=== PATIENT | male | born 1935 | race Caucasian/White ===

== ENCOUNTER 2023-01-25 20:37 | Inpatient (IN) | payer OTHER ==
[2023-01-25] MEDS ORDERED: FUROSEMIDE 40 MG/4 ML INJECTABLE VIAL IVPUSH ONE (20:55)
[2023-01-25] MEDS ORDERED: FUROSEMIDE 40 MG/4 ML INJECTABLE VIAL ONE (21:16)
[2023-01-25 21:28] LABS: BASO % 0.7 % (0-2.0); EOS % 5.3 % (0-4.5); HEMATOCRIT 42.7 % (35.4-49); HEMOGLOBIN 14.3 GM/dL (11.7-16.9); LYMPH % 16.1 % (8-40); MCHC 33.4 g/dl (32.0-35.9); MEAN CELL VOLUME 92.6 fl (80-96); MEAN PLT VOLUME 7.4 fl (7.5-11.1); MONO % 13.3 % (3.8-10.2); NEUT % 64.6 % (42.8-82.8); PLATELET COUNT 250 10^3/uL (134-434); RBC 4.61 M/mm3 (4.00-5.60); RDW 15.8 % (11.9-15.9); WHITE BLOOD COUNT 5.4 K/mm3 (4.0-10.0)
[2023-01-25 21:31] LABS: VENOUS BASE EXCESS -2.7 mmol/L (-2-2); VENOUS O2 SATURATION 62.7 % (70-80); VENOUS PCO2 46.2 mmHg (38-52); VENOUS PH 7.326 (7.310-7.410)
[2023-01-25 21:37] LABS: INR 1.3 (0.83-1.09)
[2023-01-25 21:39] LABS: ACTIVATED PTT 32.4 SECONDS (25.2-36.5)
[2023-01-25 21:45] LABS: POTASSIUM 4.6 mmol/L (3.5-5.1)
[2023-01-25 21:48] LABS: ALBUMIN 2.8 g/dl (3.4-5.0); BLOOD UREA NITROGEN 24.6 mg/dL (7-18); CALCIUM 8.4 mg/dL (8.5-10.1)
[2023-01-25 21:51] LABS: CREATININE 2.2 mg/dL (0.55-1.3)
[2023-01-25 21:52] LABS: BILIRUBIN,TOTAL 1.1 mg/dL (0.2-1)
[2023-01-25 21:55] LABS: TOT PROT 6.6 g/dl (6.4-8.2)
[2023-01-25] MEDS ORDERED: ATORVASTATIN CA 20 MG TABLET (FP) ONE (22:32)
[2023-01-25] MEDS ORDERED: LISINOPRIL 10 MG TABLET ONE (22:33)
[2023-01-25] MEDS ORDERED: PANTOPRAZOLE 40 MG TABLET PO ONE (22:33)
[2023-01-25] MEDS: ATORVASTATIN CA 20 MG TABLET (FP) PO SCH (22:42)
[2023-01-25] MEDS: PANTOPRAZOLE 40 MG TABLET PO SCH (22:42)
[2023-01-25] MEDS: APIXABAN 2.5 MG TABLET PO SCH (22:42)
[2023-01-25] MEDS: LISINOPRIL 10 MG TABLET PO SCH (22:42)
[2023-01-25 23:03] LABS: EPI CELLS 2 /uL (0-25.1); HYALINE CASTS 0 /uL (0-3.1); PH,URINE 6.5 (5.0-8.0); URINE APPEARANCE CLEAR; URINE BACTERIA 6 /uL (0-1359); URINE BILIRUBIN NEGATIVE (NEGATIVE); URINE COLOR YELLOW; URINE GLUCOSE (UA) NEGATIVE (NEGATIVE); URINE KETONE NEGATIVE (NEGATIVE); URINE LEUK ESTERASE NEGATIVE (NEGATIVE); URINE NITRITE NEGATIVE (NEGATIVE); URINE PROTEIN 3+ (NEGATIVE); URINE RBC 28 /uL (0-23.9); URINE UROBILINOGEN 0.2 mg/dL (0.2-1.0); URINE WBC 3 /uL (0-25.8)
[2023-01-26] MEDS ORDERED: amLODIPine BESYLATE 5 MG TABLET (FP) PO ONE (01:16)
[2023-01-26] MEDS ORDERED: ALBUTEROL SO4 2.5/IPRATROPIUM 0.5 INH SOL 3 ML VIAL.NEB. NEB PRN ×2 (05:04→05:06)
[2023-01-26] MEDS ORDERED: hydrALAZINE HCL 20 MG/ML VIAL IVPUSH ONE (06:30)
[2023-01-26 07:51] LABS: POTASSIUM 3.8 mmol/L (3.5-5.1)
[2023-01-26 07:57] LABS: ALBUMIN 2.7 g/dl (3.4-5.0); CALCIUM 8.5 mg/dL (8.5-10.1)
[2023-01-26 07:58] LABS: BLOOD UREA NITROGEN 24.3 mg/dL (7-18)
[2023-01-26 07:59] LABS: BASO % 0.9 % (0-2.0); EOS % 5.7 % (0-4.5); HEMOGLOBIN 13.4 GM/dL (11.7-16.9); LYMPH % 16.3 % (8-40); MCH 31.7 pg (25.7-33.7); MCHC 34.4 g/dl (32.0-35.9); MEAN CELL VOLUME 92.3 fl (80-96); MEAN PLT VOLUME 7.3 fl (7.5-11.1); MONO % 15.3 % (3.8-10.2); NEUT % 61.8 % (42.8-82.8); PLATELET COUNT 218 10^3/uL (134-434); RBC 4.23 M/mm3 (4.00-5.60); RDW 15.7 % (11.9-15.9); WHITE BLOOD COUNT 4.7 K/mm3 (4.0-10.0)
[2023-01-26 08:00] LABS: CREATININE 2.2 mg/dL (0.55-1.3)
[2023-01-26 08:01] LABS: BILIRUBIN,TOTAL 1.2 mg/dL (0.2-1)
[2023-01-26 09:33] LABS: ERYTHROCYTE SEDIMENTATION RATE 39 mm/hr (0-20)
[2023-01-26] MEDS: FUROSEMIDE 40 MG/4 ML INJECTABLE VIAL IVPUSH SCH (10:45)
[2023-01-26] MEDS: APIXABAN 2.5 MG TABLET PO SCH ×2 (10:45→22:10)
[2023-01-26] MEDS: LISINOPRIL 10 MG TABLET PO SCH ×2 (10:45→22:10)
[2023-01-26] MEDS: PANTOPRAZOLE 40 MG TABLET PO SCH (10:45)
[2023-01-26] MEDS: ATORVASTATIN CA 20 MG TABLET (FP) PO SCH (22:10)
[2023-01-27] MEDS: amLODIPine BESYLATE 10 MG TABLET (FP) PO SCH ×2 (02:52→14:44)
[2023-01-27] MEDS ORDERED: hydrALAZINE HCL 20 MG/ML VIAL IVPUSH ONE (06:30)
[2023-01-27 07:49] LABS: BASO % 0.7 % (0-2.0); HEMATOCRIT 38.4 % (35.4-49); HEMOGLOBIN 12.8 GM/dL (11.7-16.9); LYMPH % 12.8 % (8-40); MCH 31.4 pg (25.7-33.7); MCHC 33.3 g/dl (32.0-35.9); MEAN CELL VOLUME 94.3 fl (80-96); MEAN PLT VOLUME 7.6 fl (7.5-11.1); MONO % 15.1 % (3.8-10.2); NEUT % 67.4 % (42.8-82.8); PLATELET COUNT 217 10^3/uL (134-434); RBC 4.07 M/mm3 (4.00-5.60); RDW 15.5 % (11.9-15.9); WHITE BLOOD COUNT 5.2 K/mm3 (4.0-10.0)
[2023-01-27 08:11] LABS: CHLORIDE 100 mmol/L (98-107); POTASSIUM 3.3 mmol/L (3.5-5.1); SODIUM 138 mmol/L (136-145)
[2023-01-27 08:16] LABS: ALBUMIN 2.4 g/dl (3.4-5.0); ANION GAP 10 MMOL/L (8-16); CALCIUM 8.2 mg/dL (8.5-10.1); CO2 28 mmol/L (21-32); GLUCOSE,RANDOM 92 mg/dL (74-106)
[2023-01-27 08:17] LABS: BLOOD UREA NITROGEN 24.5 mg/dL (7-18)
[2023-01-27 08:19] LABS: CREATININE 2.1 mg/dL (0.55-1.3); SGOT/AST 12 U/L (15-37)
[2023-01-27 08:21] LABS: BILIRUBIN,TOTAL 1.1 mg/dL (0.2-1); TOT PROT 5.6 g/dl (6.4-8.2)
[2023-01-27 08:22] LABS: ALK PHOS 143 U/L (45-117)
[2023-01-27 08:37] LABS: SGPT/ALT < 6 U/L (13-61)
[2023-01-27] MEDS: PANTOPRAZOLE 40 MG TABLET PO SCH (09:34)
[2023-01-27] MEDS: APIXABAN 2.5 MG TABLET PO SCH ×2 (09:34→22:21)
[2023-01-27] MEDS: FUROSEMIDE 40 MG/4 ML INJECTABLE VIAL IVPUSH SCH (09:34)
[2023-01-27] MEDS: LISINOPRIL 10 MG TABLET PO SCH ×2 (09:34→22:21)
[2023-01-27] MEDS: DONEPEZIL HCL 5 MG TABLET (FP) PO SCH (09:34)
[2023-01-27] MEDS ORDERED: POTASSIUM CHLORIDE TABS 20 MEQ TABLET.ER (FP) PO ONE (10:15)
[2023-01-27] MEDS: CYANOCOBALAMIN (VITAMIN B-12) 100 MCG TABLET PO SCH (14:44)
[2023-01-27] MEDS ORDERED: hydrALAZINE HCL 25 MG TABLET (FP) PO SCH (22:00)
[2023-01-27] MEDS ORDERED: hydrALAZINE HCL 10 MG TABLET PO SCH (22:00)
[2023-01-27] MEDS: ATORVASTATIN CA 20 MG TABLET (FP) PO SCH (22:21)
[2023-01-28] MEDS ORDERED: hydrALAZINE HCL 10 MG TABLET PO SCH (04:55)
[2023-01-28 06:43] LABS: BASO % 0.7 % (0-2.0); EOS % 3.9 % (0-4.5); HEMATOCRIT 38.6 % (35.4-49); LYMPH % 16.1 % (8-40); MCH 31.5 pg (25.7-33.7); MCHC 33.5 g/dl (32.0-35.9); MEAN CELL VOLUME 93.8 fl (80-96); MEAN PLT VOLUME 7.4 fl (7.5-11.1); MONO % 14.2 % (3.8-10.2); NEUT % 65.1 % (42.8-82.8); PLATELET COUNT 220 10^3/uL (134-434); RBC 4.12 M/mm3 (4.00-5.60); RDW 15.7 % (11.9-15.9); WHITE BLOOD COUNT 4.6 K/mm3 (4.0-10.0)
[2023-01-28 06:58] LABS: POTASSIUM 3.4 mmol/L (3.5-5.1)
[2023-01-28 07:00] LABS: BLOOD UREA NITROGEN 26.8 mg/dL (7-18); CALCIUM 8.4 mg/dL (8.5-10.1)
[2023-01-28 07:04] LABS: CREATININE 2.2 mg/dL (0.55-1.3)
[2023-01-28] MEDS: APIXABAN 2.5 MG TABLET PO SCH ×2 (09:18→21:18)
[2023-01-28] MEDS: LISINOPRIL 10 MG TABLET PO SCH ×2 (09:18→21:18)
[2023-01-28] MEDS: PANTOPRAZOLE 40 MG TABLET PO SCH (09:18)
[2023-01-28] MEDS: amLODIPine BESYLATE 10 MG TABLET (FP) PO SCH (09:18)
[2023-01-28] MEDS: FUROSEMIDE 40 MG/4 ML INJECTABLE VIAL IVPUSH SCH (09:18)
[2023-01-28] MEDS: KCL 10 MEQ IVPB 10 MEQ/100 ML INFUS.BAG IVPB SCH ×3 (09:18→12:15)
[2023-01-28] MEDS: DONEPEZIL HCL 5 MG TABLET (FP) PO SCH (09:18)
[2023-01-28] MEDS: CYANOCOBALAMIN (VITAMIN B-12) 100 MCG TABLET PO SCH (09:20)
[2023-01-28 09:27] LABS: ERYTHROCYTE SEDIMENTATION RATE 30 mm/hr (0-20)
[2023-01-28] MEDS ORDERED: POTASSIUM CHLORIDE TABS 20 MEQ TABLET.ER (FP) PO ONE (10:00)
[2023-01-28] MEDS ORDERED: hydrALAZINE HCL 25 MG TABLET (FP) PO ONE (16:56)
[2023-01-28] MEDS: hydrALAZINE HCL 50 MG TABLET (FP) PO SCH (21:18)
[2023-01-28] MEDS: ATORVASTATIN CA 20 MG TABLET (FP) PO SCH (21:18)
[2023-01-28] MEDS ORDERED: hydrALAZINE HCL 25 MG TABLET (FP) PO SCH (22:00)
[2023-01-29] MEDS: hydrALAZINE HCL 50 MG TABLET (FP) PO SCH ×3 (05:44→21:20)
[2023-01-29 08:13] LABS: BASO % 0.6 % (0-2.0); EOS % 4.3 % (0-4.5); HEMATOCRIT 41.7 % (35.4-49); HEMOGLOBIN 14.1 GM/dL (11.7-16.9); LYMPH % 15.8 % (8-40); MCH 31.7 pg (25.7-33.7); MCHC 33.9 g/dl (32.0-35.9); MEAN CELL VOLUME 93.4 fl (80-96); MEAN PLT VOLUME 7.6 fl (7.5-11.1); MONO % 14.6 % (3.8-10.2); NEUT % 64.7 % (42.8-82.8); PLATELET COUNT 255 10^3/uL (134-434); RBC 4.46 M/mm3 (4.00-5.60); RDW 15.6 % (11.9-15.9); WHITE BLOOD COUNT 4.9 K/mm3 (4.0-10.0)
[2023-01-29 08:29] LABS: POTASSIUM 3.8 mmol/L (3.5-5.1)
[2023-01-29 08:37] LABS: BLOOD UREA NITROGEN 27.4 mg/dL (7-18); CALCIUM 8.8 mg/dL (8.5-10.1)
[2023-01-29 08:40] LABS: CREATININE 2.2 mg/dL (0.55-1.3)
[2023-01-29] MEDS: FUROSEMIDE 40 MG/4 ML INJECTABLE VIAL IVPUSH SCH (09:28)
[2023-01-29] MEDS: LISINOPRIL 10 MG TABLET PO SCH ×2 (09:32→21:20)
[2023-01-29] MEDS: DONEPEZIL HCL 5 MG TABLET (FP) PO SCH (09:32)
[2023-01-29] MEDS: PANTOPRAZOLE 40 MG TABLET PO SCH (09:32)
[2023-01-29] MEDS: CYANOCOBALAMIN (VITAMIN B-12) 100 MCG TABLET PO SCH (09:32)
[2023-01-29] MEDS: amLODIPine BESYLATE 10 MG TABLET (FP) PO SCH (09:32)
[2023-01-29] MEDS: APIXABAN 2.5 MG TABLET PO SCH ×2 (09:32→21:20)
[2023-01-29] MEDS: NYSTATIN POWDER 100,000 UNITS/GM - 15 GM TOPICAL POWDER TP SCH ×2 (12:36→21:18)
[2023-01-29] MEDS: ATORVASTATIN CA 20 MG TABLET (FP) PO SCH (21:20)
[2023-01-30] MEDS: hydrALAZINE HCL 50 MG TABLET (FP) PO SCH ×3 (06:33→21:15)
[2023-01-30 07:22] LABS: BASO % 0.6 % (0-2.0); EOS % 4.8 % (0-4.5); HEMATOCRIT 39.9 % (35.4-49); HEMOGLOBIN 13.5 GM/dL (11.7-16.9); LYMPH % 14.6 % (8-40); MCH 31.8 pg (25.7-33.7); MCHC 33.8 g/dl (32.0-35.9); MEAN CELL VOLUME 94.2 fl (80-96); MEAN PLT VOLUME 7.4 fl (7.5-11.1); PLATELET COUNT 236 10^3/uL (134-434); RBC 4.23 M/mm3 (4.00-5.60); RDW 15.5 % (11.9-15.9); WHITE BLOOD COUNT 5.2 K/mm3 (4.0-10.0)
[2023-01-30 07:36] LABS: POTASSIUM 3.6 mmol/L (3.5-5.1)
[2023-01-30 07:39] LABS: CALCIUM 8.7 mg/dL (8.5-10.1)
[2023-01-30 07:40] LABS: BLOOD UREA NITROGEN 27.7 mg/dL (7-18); MAGNESIUM 1.8 mg/dL (1.8-2.4)
[2023-01-30 07:43] LABS: CREATININE 2.2 mg/dL (0.55-1.3)
[2023-01-30] MEDS ORDERED: MAGNESIUM 1GM/D5W 100ML - 100 ML IVPB IVPB ONE (08:00)
[2023-01-30] MEDS: APIXABAN 2.5 MG TABLET PO SCH ×2 (09:24→21:15)
[2023-01-30] MEDS: LISINOPRIL 10 MG TABLET PO SCH ×2 (09:24→21:15)
[2023-01-30] MEDS: PANTOPRAZOLE 40 MG TABLET PO SCH (09:24)
[2023-01-30] MEDS: amLODIPine BESYLATE 10 MG TABLET (FP) PO SCH (09:24)
[2023-01-30] MEDS: FUROSEMIDE 40 MG/4 ML INJECTABLE VIAL IVPUSH SCH (09:24)
[2023-01-30] MEDS: DONEPEZIL HCL 5 MG TABLET (FP) PO SCH (09:24)
[2023-01-30] MEDS: CYANOCOBALAMIN (VITAMIN B-12) 100 MCG TABLET PO SCH (09:24)
[2023-01-30] MEDS: NYSTATIN POWDER 100,000 UNITS/GM - 15 GM TOPICAL POWDER TP SCH ×2 (09:25→21:16)
[2023-01-30] MEDS: ATORVASTATIN CA 20 MG TABLET (FP) PO SCH (21:15)
[2023-01-31] MEDS: hydrALAZINE HCL 50 MG TABLET (FP) PO SCH (06:32)
[2023-01-31 07:28] LABS: BASO % 0.8 % (0-2.0); EOS % 5.9 % (0-4.5); HEMATOCRIT 41.3 % (35.4-49); HEMOGLOBIN 13.9 GM/dL (11.7-16.9); LYMPH % 14.9 % (8-40); MCH 31.8 pg (25.7-33.7); MCHC 33.6 g/dl (32.0-35.9); MEAN CELL VOLUME 94.7 fl (80-96); MEAN PLT VOLUME 7.3 fl (7.5-11.1); MONO % 13.1 % (3.8-10.2); NEUT % 65.3 % (42.8-82.8); PLATELET COUNT 242 10^3/uL (134-434); RBC 4.36 M/mm3 (4.00-5.60); RDW 15.6 % (11.9-15.9); WHITE BLOOD COUNT 5.3 K/mm3 (4.0-10.0)
[2023-01-31 07:47] LABS: POTASSIUM 3.6 mmol/L (3.5-5.1)
[2023-01-31 07:49] LABS: CALCIUM 8.6 mg/dL (8.5-10.1)
[2023-01-31 07:50] LABS: BLOOD UREA NITROGEN 31.2 mg/dL (7-18)
[2023-01-31 07:53] LABS: CREATININE 2.2 mg/dL (0.55-1.3)
[2023-01-31] MEDS: LISINOPRIL 10 MG TABLET PO SCH (09:26)
[2023-01-31] MEDS: FUROSEMIDE 40 MG/4 ML INJECTABLE VIAL IVPUSH SCH (09:26)
[2023-01-31] MEDS: DONEPEZIL HCL 5 MG TABLET (FP) PO SCH (09:26)
[2023-01-31] MEDS: APIXABAN 2.5 MG TABLET PO SCH (09:26)
[2023-01-31] MEDS: PANTOPRAZOLE 40 MG TABLET PO SCH (09:26)
[2023-01-31] MEDS: amLODIPine BESYLATE 10 MG TABLET (FP) PO SCH (09:26)
[2023-01-31] MEDS: CYANOCOBALAMIN (VITAMIN B-12) 100 MCG TABLET PO SCH (09:27)
[2023-01-31] MEDS: NYSTATIN POWDER 100,000 UNITS/GM - 15 GM TOPICAL POWDER TP SCH (09:27)
[2023-01-31] MEDS ORDERED: SPIRONOLACTONE 25 MG TABLET PO SCH (10:45)
[2023-01-31 16:05] VITALS: RESP 20
[2023-01-31 18:55] VITALS: BP 152/77; PULSE 84; TEMP 97.4
[2023-02-01] MEDS ORDERED: FUROSEMIDE 40 MG TABLET (FP) PO SCH (10:00)
[2023-02-01 21:59] VITALS: BMI 31.0
== END 2023-01-31 19:44 | DRG 291 ==
LOC: JER 20:37 → JERBED 20:55 → J4W 01-26 01:01
PROVIDERS: ADMIT Internal Medicine; ATTEND Internal Medicine
DX: I13.0 Hypertensive heart and chronic kidney disease with heart failure and stage 1 through stage 4 chronic kidney disease, or unspecified chronic kidney disease (principal); I50.33 Acute on chronic diastolic (congestive) heart failure; I87.2 Venous insufficiency (chronic) (peripheral); E78.5 Hyperlipidemia, unspecified; K21.9 Gastro-esophageal reflux disease without esophagitis; K22.70 Barrett's esophagus without dysplasia; N40.0 Benign prostatic hyperplasia without lower urinary tract symptoms; I25.10 Atherosclerotic heart disease of native coronary artery without angina pectoris; I48.91 Unspecified atrial fibrillation; E87.6 Hypokalemia
CPT/HCPCS: 0241U-QW; 36415; 71045-TC-FY; 76775-TC; 80048; 80053; 80061; 81003; 82607; 82803; 83036; 83735; 83880; 84443; 84484; 85025; 85610; 85651; 85730; 86140; 86780; 93005; 93010; 93306-TC; 97116-GP; 97162-GP; 99285-25

== ENCOUNTER 2023-08-30 14:50 | Inpatient (IN) | payer OTHER ==
[2023-08-30] MEDS ORDERED: methylPREDNISolone NA SUCC 125 MG/2 ML VIAL IVPB ONE (16:18)
[2023-08-30] MEDS ORDERED: ALBUTEROL SO4 2.5/IPRATROPIUM 0.5 INH SOL 3 ML VIAL.NEB. NEB ONE ×4 (16:19→20:20)
[2023-08-30] MEDS ORDERED: predniSONE 20 MG TABLET (UD) PO ONE (17:40)
[2023-08-30] MEDS ORDERED: predniSONE 20 MG TABLET (UD) ONE (17:58)
[2023-08-30 18:04] LABS: ALBUMIN 3.4 g/dl (3.4-5.0); CALCIUM 8.8 mg/dL (8.5-10.1); MAGNESIUM 1.7 mg/dL (1.8-2.4)
[2023-08-30 18:05] LABS: BLOOD UREA NITROGEN 37.3 mg/dL (7-18)
[2023-08-30 18:07] LABS: PHOSPHOROUS 2.9 mg/dL (2.5-4.9)
[2023-08-30 18:08] LABS: CREATININE 3.4 mg/dL (0.55-1.3)
[2023-08-30 18:09] LABS: BILIRUBIN,TOTAL 1.2 mg/dL (0.2-1); TOT PROT 7.8 g/dl (6.4-8.2)
[2023-08-30 18:13] LABS: N-TERMINAL BNP 14915.6 pg/ml (5-450)
[2023-08-30] MEDS ORDERED: SODIUM ZIRCONIUM CYCLOSILICATE (LOKELMA) 5 GM PACKET PO ONE (18:13)
[2023-08-30 19:21] LABS: BASO % 0.5 % (0-2.0); EOS % 0.3 % (0-4.5); HEMATOCRIT 38.1 % (35.4-49); HEMOGLOBIN 12.4 GM/dL (11.7-16.9); MCH 31.3 pg (25.7-33.7); MCHC 32.4 g/dl (32.0-35.9); MEAN CELL VOLUME 96.4 fl (80-96); MEAN PLT VOLUME 7.2 fl (7.5-11.1); MONO % 9.1 % (3.8-10.2); NEUT % 87.1 % (42.8-82.8); PLATELET COUNT 199 10^3/uL (134-434); RBC 3.95 M/mm3 (4.00-5.60); RDW 14.2 % (11.9-15.9); WHITE BLOOD COUNT 5.9 K/mm3 (4.0-10.0)
[2023-08-30 19:36] LABS: POTASSIUM 4.9 mmol/L (3.5-5.1)
[2023-08-30 19:38] LABS: CALCIUM 8.7 mg/dL (8.5-10.1)
[2023-08-30 19:39] LABS: ALBUMIN 3.1 g/dl (3.4-5.0); BLOOD UREA NITROGEN 38.5 mg/dL (7-18)
[2023-08-30 19:42] LABS: CREATININE 3.3 mg/dL (0.55-1.3)
[2023-08-30 19:44] LABS: TOT PROT 6.8 g/dl (6.4-8.2)
[2023-08-30] MEDS ORDERED: ACETAMINOPHEN 325 MG TABLET (FP) PO PRN (20:41)
[2023-08-30] MEDS: ALBUTEROL SO4 2.5/IPRATROPIUM 0.5 INH SOL 3 ML VIAL.NEB. NEB PRN (20:51)
[2023-08-30] MEDS ORDERED: ATORVASTATIN CA 20 MG TABLET (FP) ONE (21:22)
[2023-08-30] MEDS ORDERED: PANTOPRAZOLE 40 MG TABLET PO ONE (21:23)
[2023-08-30] MEDS ORDERED: APIXABAN 2.5 MG TABLET ONE (21:23)
[2023-08-30] MEDS ORDERED: hydrALAZINE HCL 50 MG TABLET (FP) ONE (21:24)
[2023-08-30] MEDS ORDERED: SENNOSIDES 8.6MG TABLET (FP) PO ONE (21:24)
[2023-08-30] MEDS: APIXABAN 2.5 MG TABLET PO SCH (21:44)
[2023-08-30] MEDS: LISINOPRIL 10 MG TABLET PO SCH (21:44)
[2023-08-30] MEDS: PANTOPRAZOLE 40 MG TABLET PO SCH (21:44)
[2023-08-30] MEDS: hydrALAZINE HCL 50 MG TABLET (FP) PO SCH (21:44)
[2023-08-30] MEDS: ATORVASTATIN CA 20 MG TABLET (FP) PO SCH (21:44)
[2023-08-30] MEDS ORDERED: SENNOSIDES 8.8 MG/5 ML SYRUP PO SCH (22:00)
[2023-08-30] MEDS ORDERED: DEXTROSE 5%-0.45% SALINE 1,000 ML IV SCH (23:45)
[2023-08-31] MEDS ORDERED: hydrALAZINE HCL 50 MG TABLET (FP) ONE (06:08)
[2023-08-31] MEDS: hydrALAZINE HCL 50 MG TABLET (FP) PO SCH ×3 (06:17→21:21)
[2023-08-31 06:51] LABS: BASO % 0.2 % (0-2.0); HEMATOCRIT 38.1 % (35.4-49); HEMOGLOBIN 12.2 GM/dL (11.7-16.9); LYMPH % 5.5 % (8-40); MCHC 32.1 g/dl (32.0-35.9); MEAN CELL VOLUME 96.7 fl (80-96); MEAN PLT VOLUME 7.3 fl (7.5-11.1); NEUT % 88.3 % (42.8-82.8); PLATELET COUNT 185 10^3/uL (134-434); RBC 3.94 M/mm3 (4.00-5.60); RDW 14.6 % (11.9-15.9); WHITE BLOOD COUNT 3.7 K/mm3 (4.0-10.0)
[2023-08-31 06:55] LABS: POTASSIUM 5.7 mmol/L (3.5-5.1)
[2023-08-31 06:56] LABS: CALCIUM 8.4 mg/dL (8.5-10.1)
[2023-08-31 06:57] LABS: BLOOD UREA NITROGEN 41.6 mg/dL (7-18)
[2023-08-31 07:00] LABS: CREATININE 3.3 mg/dL (0.55-1.3)
[2023-08-31 07:02] LABS: BILIRUBIN,TOTAL 0.6 mg/dL (0.2-1); TOT PROT 6.7 g/dl (6.4-8.2)
[2023-08-31] MEDS: APIXABAN 2.5 MG TABLET PO SCH ×2 (09:24→21:20)
[2023-08-31] MEDS: AMINO ACIDS/PROTEIN HYDROLYS 30 ML LIQUID.PKT PO SCH ×2 (09:24→17:25)
[2023-08-31] MEDS: ASPIRIN COATED 81 MG TABLET.EC PO SCH (09:25)
[2023-08-31] MEDS: MULTIVITAMINS THER W-MINERALS COMBO TABLET (FP) PO SCH (09:25)
[2023-08-31] MEDS: PANTOPRAZOLE 40 MG TABLET PO SCH (09:25)
[2023-08-31] MEDS: CYANOCOBALAMIN 1,000 MCG TABLET (FP) PO SCH (09:26)
[2023-08-31] MEDS: LISINOPRIL 10 MG TABLET PO SCH ×2 (09:36→21:21)
[2023-08-31] MEDS: FUROSEMIDE 40 MG TABLET (FP) PO SCH (09:36)
[2023-08-31] MEDS ORDERED: amLODIPine BESYLATE 10 MG TABLET (FP) ONE (09:42)
[2023-08-31] MEDS ORDERED: OSELTAMIVIR PHOSPHATE 30 MG CAPSULE ONE (09:43)
[2023-08-31] MEDS: OSELTAMIVIR PHOSPHATE 30 MG CAPSULE PO SCH (09:46)
[2023-08-31] MEDS: amLODIPine BESYLATE 10 MG TABLET (FP) PO SCH (09:47)
[2023-08-31] MEDS ORDERED: LISINOPRIL 10 MG TABLET PO SCH (10:00)
[2023-08-31] MEDS ORDERED: LOPERAMIDE HCL 2 MG CAPSULE PO PRN (11:30)
[2023-08-31] MEDS ORDERED: LOPERAMIDE HCL 2 MG CAPSULE PO ONE ×2 (11:45→14:40)
[2023-08-31] MEDS ORDERED: ALBUTEROL SO4 2.5/IPRATROPIUM 0.5 INH SOL 3 ML VIAL.NEB. NEB ONE (12:33)
[2023-08-31] MEDS: ALBUTEROL SO4 2.5/IPRATROPIUM 0.5 INH SOL 3 ML VIAL.NEB. NEB PRN (12:34)
[2023-08-31] MEDS: ISOSORBIDE DINITRATE 5 MG TABLET PO SCH ×2 (15:28)
[2023-08-31] MEDS: SODIUM ZIRCONIUM CYCLOSILICATE (LOKELMA) 5 GM PACKET PO SCH (17:25)
[2023-08-31] MEDS: DONEPEZIL HCL 5 MG TABLET (FP) PO SCH (21:20)
[2023-08-31] MEDS: ATORVASTATIN CA 20 MG TABLET (FP) PO SCH (21:21)
[2023-09-01 02:31] LABS: EPI CELLS 2 /uL (0-25.1); HYALINE CASTS 0 /uL (0-3.1); PH,URINE 5.5 (5.0-8.0); URINE APPEARANCE CLEAR; URINE BACTERIA 2 /uL (0-1359); URINE BILIRUBIN NEGATIVE (NEGATIVE); URINE COLOR YELLOW; URINE GLUCOSE (UA) NEGATIVE (NEGATIVE); URINE KETONE NEGATIVE (NEGATIVE); URINE LEUK ESTERASE NEGATIVE (NEGATIVE); URINE NITRITE NEGATIVE (NEGATIVE); URINE PROTEIN 2+ (NEGATIVE); URINE RBC 6 /uL (0-23.9); URINE UROBILINOGEN 0.2 mg/dL (0.2-1.0); URINE WBC 10 /uL (0-25.8)
[2023-09-01] MEDS: hydrALAZINE HCL 50 MG TABLET (FP) PO SCH ×3 (06:24→21:41)
[2023-09-01 09:06] LABS: BASO % 0.3 % (0-2.0); EOS % 0.1 % (0-4.5); HEMATOCRIT 37.7 % (35.4-49); HEMOGLOBIN 12.4 GM/dL (11.7-16.9); LYMPH % 13.1 % (8-40); MCH 31.3 pg (25.7-33.7); MCHC 32.9 g/dl (32.0-35.9); MEAN CELL VOLUME 95.3 fl (80-96); MEAN PLT VOLUME 7.2 fl (7.5-11.1); MONO % 15.3 % (3.8-10.2); NEUT % 71.2 % (42.8-82.8); PLATELET COUNT 198 10^3/uL (134-434); RBC 3.96 M/mm3 (4.00-5.60); RDW 14.9 % (11.9-15.9); WHITE BLOOD COUNT 4.4 K/mm3 (4.0-10.0)
[2023-09-01] MEDS: AMINO ACIDS/PROTEIN HYDROLYS 30 ML LIQUID.PKT PO SCH ×2 (09:08→16:46)
[2023-09-01] MEDS: ISOSORBIDE DINITRATE 5 MG TABLET PO SCH ×2 (09:08→12:37)
[2023-09-01 09:32] LABS: POTASSIUM 4.6 mmol/L (3.5-5.1)
[2023-09-01 09:48] LABS: CALCIUM 8.7 mg/dL (8.5-10.1)
[2023-09-01 09:49] LABS: BLOOD UREA NITROGEN 56.3 mg/dL (7-18)
[2023-09-01] MEDS: FUROSEMIDE 40 MG TABLET (FP) PO SCH (09:50)
[2023-09-01] MEDS: MULTIVITAMINS THER W-MINERALS COMBO TABLET (FP) PO SCH (09:50)
[2023-09-01] MEDS: LISINOPRIL 10 MG TABLET PO SCH ×2 (09:50→21:41)
[2023-09-01] MEDS: CYANOCOBALAMIN 1,000 MCG TABLET (FP) PO SCH (09:50)
[2023-09-01] MEDS: amLODIPine BESYLATE 10 MG TABLET (FP) PO SCH (09:50)
[2023-09-01] MEDS: ASPIRIN COATED 81 MG TABLET.EC PO SCH (09:50)
[2023-09-01] MEDS: APIXABAN 2.5 MG TABLET PO SCH ×2 (09:50→21:41)
[2023-09-01 09:53] LABS: CREATININE 3.2 mg/dL (0.55-1.3)
[2023-09-01] MEDS: PANTOPRAZOLE 40 MG TABLET PO SCH (09:53)
[2023-09-01] MEDS: SODIUM ZIRCONIUM CYCLOSILICATE (LOKELMA) 5 GM PACKET PO SCH (09:53)
[2023-09-01] MEDS: OSELTAMIVIR PHOSPHATE 30 MG CAPSULE PO SCH ×2 (10:41→12:33)
[2023-09-01] MEDS: ALBUTEROL SO4 2.5/IPRATROPIUM 0.5 INH SOL 3 ML VIAL.NEB. NEB PRN (19:54)
[2023-09-01 20:10] VITALS: BMI 27.3
[2023-09-01] MEDS: guaiFENesin 600 MG TABLET.ER (FP) PO SCH (21:40)
[2023-09-01] MEDS: DONEPEZIL HCL 5 MG TABLET (FP) PO SCH (21:41)
[2023-09-01] MEDS: ATORVASTATIN CA 20 MG TABLET (FP) PO SCH (21:41)
[2023-09-01] MEDS: NYSTATIN POWDER 100,000 UNITS/GM - 15 GM TOPICAL POWDER TP SCH (21:41)
[2023-09-02] MEDS: hydrALAZINE HCL 50 MG TABLET (FP) PO SCH ×3 (06:51→22:03)
[2023-09-02] MEDS: ISOSORBIDE DINITRATE 5 MG TABLET PO SCH ×2 (07:46→13:30)
[2023-09-02] MEDS: AMINO ACIDS/PROTEIN HYDROLYS 30 ML LIQUID.PKT PO SCH ×2 (07:46→16:33)
[2023-09-02 08:58] LABS: BASO % 0.8 % (0-2.0); EOS % 1.4 % (0-4.5); HEMATOCRIT 37.9 % (35.4-49); HEMOGLOBIN 12.3 GM/dL (11.7-16.9); MCH 31.2 pg (25.7-33.7); MCHC 32.4 g/dl (32.0-35.9); MEAN CELL VOLUME 96.1 fl (80-96); MEAN PLT VOLUME 7.5 fl (7.5-11.1); MONO % 16.5 % (3.8-10.2); NEUT % 61.3 % (42.8-82.8); PLATELET COUNT 171 10^3/uL (134-434); RBC 3.95 M/mm3 (4.00-5.60); RDW 14.6 % (11.9-15.9); WHITE BLOOD COUNT 3.7 K/mm3 (4.0-10.0)
[2023-09-02 09:04] LABS: POTASSIUM 4.2 mmol/L (3.5-5.1)
[2023-09-02 09:08] LABS: BLOOD UREA NITROGEN 74.8 mg/dL (7-18)
[2023-09-02 09:12] LABS: CREATININE 3.5 mg/dL (0.55-1.3)
[2023-09-02] MEDS: LISINOPRIL 10 MG TABLET PO SCH ×2 (10:14→22:03)
[2023-09-02] MEDS: NYSTATIN POWDER 100,000 UNITS/GM - 15 GM TOPICAL POWDER TP SCH ×2 (10:14→22:04)
[2023-09-02] MEDS: guaiFENesin 600 MG TABLET.ER (FP) PO SCH ×2 (10:14→22:03)
[2023-09-02] MEDS: PANTOPRAZOLE 40 MG TABLET PO SCH (10:14)
[2023-09-02] MEDS: amLODIPine BESYLATE 10 MG TABLET (FP) PO SCH (10:14)
[2023-09-02] MEDS: ASPIRIN COATED 81 MG TABLET.EC PO SCH (10:14)
[2023-09-02] MEDS: FUROSEMIDE 40 MG TABLET (FP) PO SCH (10:14)
[2023-09-02] MEDS: APIXABAN 2.5 MG TABLET PO SCH ×2 (10:15→22:03)
[2023-09-02] MEDS: MULTIVITAMINS THER W-MINERALS COMBO TABLET (FP) PO SCH ×2 (10:15→11:50)
[2023-09-02] MEDS: CYANOCOBALAMIN 1,000 MCG TABLET (FP) PO SCH (10:15)
[2023-09-02] MEDS: SODIUM ZIRCONIUM CYCLOSILICATE (LOKELMA) 5 GM PACKET PO SCH (10:15)
[2023-09-02] MEDS: OSELTAMIVIR PHOSPHATE 30 MG CAPSULE PO SCH (11:50)
[2023-09-02] MEDS: ALBUTEROL SO4 2.5/IPRATROPIUM 0.5 INH SOL 3 ML VIAL.NEB. NEB PRN ×2 (13:42→19:15)
[2023-09-02] MEDS: DONEPEZIL HCL 5 MG TABLET (FP) PO SCH (22:03)
[2023-09-02] MEDS: ATORVASTATIN CA 20 MG TABLET (FP) PO SCH (22:03)
[2023-09-03] MEDS: hydrALAZINE HCL 50 MG TABLET (FP) PO SCH ×3 (05:31→22:33)
[2023-09-03 09:37] LABS: BASO % 0.4 % (0-2.0); EOS % 1.6 % (0-4.5); HEMATOCRIT 38.1 % (35.4-49); HEMOGLOBIN 12.4 GM/dL (11.7-16.9); MCH 31.1 pg (25.7-33.7); MCHC 32.5 g/dl (32.0-35.9); MEAN CELL VOLUME 95.8 fl (80-96); MEAN PLT VOLUME 7.6 fl (7.5-11.1); MONO % 11.7 % (3.8-10.2); NEUT % 71.3 % (42.8-82.8); PLATELET COUNT 171 10^3/uL (134-434); RBC 3.98 M/mm3 (4.00-5.60); RDW 14.4 % (11.9-15.9); WHITE BLOOD COUNT 4.5 K/mm3 (4.0-10.0)
[2023-09-03] MEDS: LISINOPRIL 10 MG TABLET PO SCH ×2 (09:48→22:33)
[2023-09-03] MEDS: amLODIPine BESYLATE 10 MG TABLET (FP) PO SCH (09:48)
[2023-09-03] MEDS: MULTIVITAMINS THER W-MINERALS COMBO TABLET (FP) PO SCH (09:48)
[2023-09-03] MEDS: PANTOPRAZOLE 40 MG TABLET PO SCH (09:48)
[2023-09-03] MEDS: guaiFENesin 600 MG TABLET.ER (FP) PO SCH ×2 (09:48→22:32)
[2023-09-03] MEDS: FUROSEMIDE 40 MG TABLET (FP) PO SCH (09:48)
[2023-09-03] MEDS: AMINO ACIDS/PROTEIN HYDROLYS 30 ML LIQUID.PKT PO SCH ×2 (09:48→18:18)
[2023-09-03] MEDS: APIXABAN 2.5 MG TABLET PO SCH ×2 (09:48→22:33)
[2023-09-03] MEDS: ASPIRIN COATED 81 MG TABLET.EC PO SCH (09:48)
[2023-09-03] MEDS: CYANOCOBALAMIN 1,000 MCG TABLET (FP) PO SCH (09:48)
[2023-09-03] MEDS: OSELTAMIVIR PHOSPHATE 30 MG CAPSULE PO SCH (09:49)
[2023-09-03] MEDS: ISOSORBIDE DINITRATE 5 MG TABLET PO SCH ×2 (09:49→12:01)
[2023-09-03] MEDS: NYSTATIN POWDER 100,000 UNITS/GM - 15 GM TOPICAL POWDER TP SCH ×2 (09:50→22:07)
[2023-09-03 10:35] LABS: POTASSIUM 4.4 mmol/L (3.5-5.1)
[2023-09-03 10:37] LABS: CALCIUM 8.5 mg/dL (8.5-10.1)
[2023-09-03 10:38] LABS: BLOOD UREA NITROGEN 86.9 mg/dL (7-18)
[2023-09-03 10:41] LABS: CREATININE 3.8 mg/dL (0.55-1.3)
[2023-09-03] MEDS ORDERED: FUROSEMIDE 40 MG TABLET (FP) PO SCH (10:45)
[2023-09-03] MEDS: ATORVASTATIN CA 20 MG TABLET (FP) PO SCH (22:32)
[2023-09-03] MEDS: DONEPEZIL HCL 5 MG TABLET (FP) PO SCH (22:33)
[2023-09-04] MEDS: hydrALAZINE HCL 50 MG TABLET (FP) PO SCH ×3 (06:06→23:07)
[2023-09-04 09:18] LABS: BASO % 0.5 % (0-2.0); EOS % 2.3 % (0-4.5); HEMATOCRIT 37.4 % (35.4-49); HEMOGLOBIN 12.4 GM/dL (11.7-16.9); LYMPH % 18.3 % (8-40); MCH 31.3 pg (25.7-33.7); MCHC 33.2 g/dl (32.0-35.9); MEAN CELL VOLUME 94.5 fl (80-96); MEAN PLT VOLUME 7.9 fl (7.5-11.1); MONO % 15.2 % (3.8-10.2); NEUT % 63.7 % (42.8-82.8); PLATELET COUNT 157 10^3/uL (134-434); RBC 3.96 M/mm3 (4.00-5.60); RDW 14.4 % (11.9-15.9); WHITE BLOOD COUNT 4.2 K/mm3 (4.0-10.0)
[2023-09-04 09:41] LABS: POTASSIUM 4.9 mmol/L (3.5-5.1)
[2023-09-04 09:49] LABS: BLOOD UREA NITROGEN 92.2 mg/dL (7-18)
[2023-09-04 09:50] LABS: CALCIUM 8.2 mg/dL (8.5-10.1)
[2023-09-04 09:52] LABS: CREATININE 3.7 mg/dL (0.55-1.3)
[2023-09-04] MEDS: AMINO ACIDS/PROTEIN HYDROLYS 30 ML LIQUID.PKT PO SCH ×2 (10:35→17:14)
[2023-09-04] MEDS: MULTIVITAMINS THER W-MINERALS COMBO TABLET (FP) PO SCH (10:36)
[2023-09-04] MEDS: PANTOPRAZOLE 40 MG TABLET PO SCH (10:36)
[2023-09-04] MEDS: ISOSORBIDE DINITRATE 5 MG TABLET PO SCH ×2 (10:36→13:46)
[2023-09-04] MEDS: guaiFENesin 600 MG TABLET.ER (FP) PO SCH ×2 (10:36→23:07)
[2023-09-04] MEDS: CYANOCOBALAMIN 1,000 MCG TABLET (FP) PO SCH (10:37)
[2023-09-04] MEDS: ASPIRIN COATED 81 MG TABLET.EC PO SCH (10:37)
[2023-09-04] MEDS: APIXABAN 2.5 MG TABLET PO SCH ×2 (10:37→23:07)
[2023-09-04] MEDS: amLODIPine BESYLATE 10 MG TABLET (FP) PO SCH (10:37)
[2023-09-04] MEDS: LISINOPRIL 10 MG TABLET PO SCH (10:37)
[2023-09-04] MEDS: NYSTATIN POWDER 100,000 UNITS/GM - 15 GM TOPICAL POWDER TP SCH ×2 (10:39→23:08)
[2023-09-04] MEDS: OSELTAMIVIR PHOSPHATE 30 MG CAPSULE PO SCH (19:59)
[2023-09-04] MEDS: DONEPEZIL HCL 5 MG TABLET (FP) PO SCH (23:07)
[2023-09-04] MEDS: ATORVASTATIN CA 20 MG TABLET (FP) PO SCH (23:07)
[2023-09-05] MEDS: hydrALAZINE HCL 50 MG TABLET (FP) PO SCH (05:10)
[2023-09-05 07:17] VITALS: RESP 18
[2023-09-05] MEDS: AMINO ACIDS/PROTEIN HYDROLYS 30 ML LIQUID.PKT PO SCH (08:25)
[2023-09-05] MEDS: ISOSORBIDE DINITRATE 5 MG TABLET PO SCH ×2 (08:25→12:43)
[2023-09-05] MEDS: APIXABAN 2.5 MG TABLET PO SCH (09:57)
[2023-09-05] MEDS: MULTIVITAMINS THER W-MINERALS COMBO TABLET (FP) PO SCH (09:57)
[2023-09-05] MEDS: guaiFENesin 600 MG TABLET.ER (FP) PO SCH (09:57)
[2023-09-05] MEDS: CYANOCOBALAMIN 1,000 MCG TABLET (FP) PO SCH (09:57)
[2023-09-05] MEDS: PANTOPRAZOLE 40 MG TABLET PO SCH (09:57)
[2023-09-05] MEDS: NYSTATIN POWDER 100,000 UNITS/GM - 15 GM TOPICAL POWDER TP SCH (09:57)
[2023-09-05] MEDS: ASPIRIN COATED 81 MG TABLET.EC PO SCH (09:57)
[2023-09-05] MEDS ORDERED: LISINOPRIL 10 MG TABLET PO SCH (10:00)
[2023-09-05 14:51] VITALS: BP 103/71; PULSE 81; TEMP 97.7
== END 2023-09-05 13:30 | DRG 291 ==
LOC: JER 14:50 → JERBED 20:22 → J7W 08-31 12:56
PROVIDERS: ADMIT Internal Medicine; ATTEND Internal Medicine
DX: I13.0 Hypertensive heart and chronic kidney disease with heart failure and stage 1 through stage 4 chronic kidney disease, or unspecified chronic kidney disease (principal); I50.33 Acute on chronic diastolic (congestive) heart failure; N17.9 Acute kidney failure, unspecified; E87.1 Hypo-osmolality and hyponatremia; N18.9 Chronic kidney disease, unspecified; I48.91 Unspecified atrial fibrillation; K21.9 Gastro-esophageal reflux disease without esophagitis; E78.5 Hyperlipidemia, unspecified; G20.A1 Parkinson's disease without dyskinesia, without mention of fluctuations; M10.9 Gout, unspecified; I25.2 Old myocardial infarction; J10.1 Influenza due to other identified influenza virus with other respiratory manifestations; K22.70 Barrett's esophagus without dysplasia; E87.5 Hyperkalemia; E83.42 Hypomagnesemia; I35.0 Nonrheumatic aortic (valve) stenosis; I25.10 Atherosclerotic heart disease of native coronary artery without angina pectoris; N40.0 Benign prostatic hyperplasia without lower urinary tract symptoms; F03.90 Unspecified dementia, unspecified severity, without behavioral disturbance, psychotic disturbance, mood disturbance, and anxiety; E53.8 Deficiency of other specified B group vitamins; R26.81 Unsteadiness on feet; Z95.2 Presence of prosthetic heart valve
CPT/HCPCS: 0241U-QW; 36415; 71045-TC-FY; 76775-TC; 80048; 80053; 81003; 82436; 82570; 83735; 83880; 83935; 84100; 84133; 84300; 84484; 85025; 85651; 86140; 87086; 93005; 93010; 94640; 97116-GP; 97161-GP; 99285-25